=== PATIENT | male | born 1950 | race Caucasian/White ===

== ENCOUNTER → 2021-07-13 10:09 | Outpatient (CLI) | payer SELFPAY ==
--- NOTE | 2021-07-13 10:20 | XR_ITS ---
FINAL REPORT CLINICAL HISTORY: COUGH FINDINGS: Two views of the chest were obtained. There is evidence of median sternotomy. The heart size and pulmonary vascularity are within normal limits. The mediastinum is normal. No acute pulmonary abnormality is identified. There is no pneumothorax. There are degenerative changes of the thoracic spine. IMPRESSION: No active cardiopulmonary disease. Reviewed, Interpreted and Dictated by Bry Ramos III, MD Transcribed by Yumiko Hay Authenticated by Bry Ramos III, MD on 07/13/2021 11:15:28 AM [facility]
[2021-07-13 11:33] LABS: Basophils % 0.4 % (0.1-2.0); Eosinophils # 0.1 K/mm3 (0.0-0.4); Eosinophils % 1.4 % (0.1-12.0); Hematocrit 35.6 % (42.0-52.0); Hemoglobin 11.7 g/dL (14.1-18.0); Lymphocytes # 0.8 K/mm3 (0.7-4.5); Lymphocytes % 18.5 % (10-50); Mean Corpuscular Hemoglobin 27.9 pg (27.0-31.2); Mean Corpuscular Volume 84.7 fl (80-94); Mean Platelet Volume 9.2 fl (7.4-10.4); Monocytes # 0.3 K/mm3 (0.1-1.0); Monocytes % 5.4 % (1.7-9.3); Neutrophils # 3.4 K/mm3 (1.8-7.8); Neutrophils % 74.3 % (37.0-80.0); Platelet Count 310 K/mm3 (142-424); Red Cell Distribution Width 13.9 % (11.5-17.5); White Blood Count 4.6 K/mm3 (4.8-10.8)
[2021-07-13 11:45] LABS: Hemoglobin A1C 7.3 % (4.0-6.0)
[2021-07-13 12:09] LABS: Chloride 101 mmol/L (98-107); Sodium 135 mmol/L (136-145)
[2021-07-13 12:10] LABS: Potassium 4.6 mmoL/L (3.5-5.1)
[2021-07-13 12:12] LABS: Alanine Aminotransferase 26 U/L (12-78); Albumin Level 3.5 g/dl (3.5-5.0); Alkaline Phosphatase 53 U/L (38-126); Anion Gap 13.6 mEq/L (5-15); Aspartate Amino Transferase 40 U/L (17-59); Bilirubin,Total 0.3 mg/dl (0.2-1.3); Blood Urea Nitrogen 38 mg/dl (9-20); Carbon Dioxide 25 mmol/L (22.0-30.0); Estimated Glomerular Filt Rate 46 ml/min (>60); GFR (African American) 56 ML/MIN (>60)
[2021-07-13 12:13] LABS: Albumin/Globulin Ratio 1.1 (1.1-1.8); Calcium 8.6 mg/dl (8.4-10.2); Globulin 3.1 g/dL (1.3-3.2); Glucose 71 mg/dl (74-100); Total Protein,Serum 6.6 g/dl (6.3-8.2)
[2021-07-13 12:24] LABS: Coronavirus 19 IgG Antibody Negative (Negative); Coronavirus 19 IgM Antibody Positive (Negative)
== END ==
PROVIDERS: PCP Internal Medicine Adolescent Medicine; Visit Provider Internal Medicine Adolescent Medicine
DX: Z01.84 Encounter for antibody response examination (principal); J18.9 Pneumonia, unspecified organism; R05.9 Cough, unspecified; E11.9 Type 2 diabetes mellitus without complications
CPT/HCPCS: 36415; 71046; 80053; 83036; 85025; 86328

== ENCOUNTER → 2022-10-17 08:45 | Outpatient (CLI) | payer SELFPAY ==
--- NOTE | 2022-10-17 08:53 | XR_ITS ---
FINAL REPORT CLINICAL HISTORY: shoulder pain, fall last winter FINDINGS: LEFT SHOULDER 3 views of the left shoulder were obtained. There is no acute fracture or dislocation. There are mild degenerative changes of the acromioclavicular joint. A small loose body adjacent to the superior aspect of the acromioclavicular joint. There is no soft tissue abnormality. IMPRESSION: Degenerative change of the acromioclavicular joint with a small loose body adjacent to the superior aspect of the joint. No acute bony abnormality. Reviewed, Interpreted and Dictated by Bry Ramos III, MD Transcribed by Yumiko Hay Authenticated and [facility]
== END ==
PROVIDERS: PCP Internal Medicine Adolescent Medicine; Visit Provider Orthopaedic Surgery
DX: M25.512 Pain in left shoulder (principal)
CPT/HCPCS: 73030

== ENCOUNTER 2024-04-23 10:27 | Emergency (ER) | payer MEDICAID, SELFPAY ==
--- NOTE | 2024-04-23 10:55 | XR_ITS ---
PROCEDURE INFORMATION: Exam: XR Left Ankle Exam date and time: 04/23/2024 10:54 AM Age: 74 years old Clinical indication: Ankle and foot; Prior surgery; Surgery date: 6+ months; Surgery type: Pinning; Patient HX: Left foot and ankle pain TECHNIQUE: Imaging protocol: Radiologic exam of the left ankle. Views: 3 or more views. COMPARISON: CR XR ANKLE LT MIN 3V 04/23/2024 10:54 AM FINDINGS: Bones/joints: No acute fracture or malalignment. 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 Status post tibiotalar calcaneal arthrodesis with single cannulated screw. No evidence of hardware loosening or fracture. No cortical erosion or periosteal reaction. Soft tissues: No distinct soft tissue abnormality. IMPRESSION: No acute fracture or malalignment. 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 Status post tibiotalar calcaneal arthrodesis with single cannulated screw. No evidence of hardware loosening or fracture. No cortical erosion or periosteal reaction.
--- NOTE | 2024-04-23 10:55 | XR_ITS ---
PROCEDURE INFORMATION: Exam: XR Left Foot Exam date and time: 04/23/2024 10:52 AM Age: 74 years old Clinical indication: Ankle and foot; Left; Prior surgery; Surgery date: 6+ months; Surgery type: Pinning; Patient HX: Lt foot and ankle pain TECHNIQUE: Imaging protocol: Radiologic exam of the left foot. Views: 3 or more views. COMPARISON: No relevant prior studies available. FINDINGS: Tubes, catheters and devices: Status post prior tibiotalocalcaneal arthrodesis with single cannulated screw. No evidence of screw loosening or fracture. No cortical erosion or periosteal reaction. Bones/joints: No acute fracture or malalignment. No worrisome lytic or blastic lesion. Moderate joint space narrowing and osteophyte formation at the great toe MTP joint. Mild degenerative change scattered in the remainder of foot. Soft tissues: Mild soft tissue swelling predominantly of the hindfoot. No radiopaque foreign body or gas. IMPRESSION: 1. No acute findings. 2. Status post prior tibiotalocalcaneal arthrodesis with single cannulated screw. No evidence of screw loosening or fracture. No cortical erosion or periosteal reaction. 3. Moderate joint space narrowing and osteophyte formation at the great toe MTP joint.
[2024-04-23 11:10] VITALS: BP 121/61; PULSE 73; RESP 20; TEMP 36.9; O2SAT 100; BMI 26.6
--- NOTE | 2024-04-23 11:30 | ED_ITS ---
Discharge Plan Disposition Patient Disposition: Home, Self-Care Condition: Good Prescriptions Prescriptions: New diclofenac sodium 1 % gel 2 g topical BID PRN (Reason: pain) Qty: 100 0RF Rx Instructions: apply to ankle as directed Referrals Follow up/Referrals: Provider,Referral, MD [Primary Care Provider] - See instructions Activity Restrictions/Add. Instructions Additional Instructions/Restrictions: Wear boot as directed Call [facility] and make appointent Use topical Diclofenac gel as directed Return if needed Clinical Impressions Clinical Impression: Ankle pain Qualifiers: Chronicity: chronic Laterality: left Qualified Code(s): M25.572 - Pain in left ankle and joints of left foot Instructions Patient Instructions: Diclofenac Topical (arthritis pain), How to Use a Walking Boot Print Language Print Language: Yoruba Discharge ED Provider: Julia Puri [facility] General Stated complaint: left ankle pain Mode of Arrival: Ambulatory Source of Information: Patient Limitations: No Limitations Time Seen by Provider: 04/23/24 11:30 Description of Symptoms (Recalled from Triage Doc. by RN): PATIENT C/O PAIN TO LEFT ANKLE. HE STATES HE HAD SURGERY WITH HARDWARE PLACEMENT ON IT APPROX 10 YEARS AGO, AFTER WHICH THEY HAD TO REMOVE MOST OF HARDWARE D/T REJECTION. PATIENT DOES STILL HAVE A 4 SCREW. THERE IS A LATERAL BEND IN PATIENT'S ANKLE, WHICH HE STATES IS NORMALLY THERE BUT SEEMS TO BE GETTING WORSE HEENT Symptoms (Recalled from RN notes): No Resp Symptoms (Recalled from RN notes): No Skin Symptoms (Recalled from RN notes): No MS Symptoms (Recalled from RN notes): Yes Functional Status (Recalled from RN notes): WNL History of Present Illness Provider Complaint: Patient states that he has surgery on this left foot and ankle about 10 yrs ago and he rejected the hardware and they left one long screw in States he has not been wearing his brace because it bothers him and he noticed he his foot and ankle looks more turned now and having achy like pain more than he was, wanted to come in and get a boot to see if that will help until he gets into the foot doctor Related Data Previous Rx's ?Medication ?Instructions ?Recorded diclofenac sodium 1 % topical gel 2 g topical BID PRN pain #100 grams 04/23/24 Allergies Allergy/AdvReac Type Severity Reaction Status Date / Time No Known Allergies Allergy Verified 10/28/22 12:09 Worker's Comp Is this a Worker's Comp case?: No [facility] Disclaimer: The information contained in this section may have been updated after the patient was seen, as this information can be updated by other users. Social History (Updated 10/28/22 @ 12:31 by Travis Cai JR, MD) Smoking Status: Never smoker alcohol intake: never current occupational status: retired Travel in the last 8 weeks: Inside the [place] ROS Obtained: Yes All systems reviewed & no additional complaints except as documented and Yes Systems reviewed as appropriate & no additional complaints except as documented Constitutional Constitutional: Reports system reviewed and no additional complaints, except as documented and Reports as per HPI ENT Ears, Nose, Mouth, and Throat: Reports system reviewed and no additional complaints, except as documented and Reports as per HPI Cardiovascular Cardiovascular: Reports system reviewed and no additional complaints, except as documented and Reports as per HPI Respiratory Respiratory: Reports system reviewed and no additional complaints, except as documented and Reports as per HPI Gastrointestinal Gastrointestingal: Reports system reviewed and no additional complaints, except as documented and as per HPI Musculoskeletal Musculoskeletal: Reports system reviewed and no additional complaints, except as documented, Reports as per HPI and Reports other (pain and turning of foot and ankle) Integumentary/Breasts Skin/Breast: Reports system reviewed and no additional complaints, except as documented and Reports as per HPI Physical Exam General General appearance: alert and in no apparent distress ENT ENT exam: Present mucous membranes moist Respiratory Respiratory exam: Present normal lung sounds bilaterally; Absent respiratory distress or wheezes Cardiovascular Cardiovascular exam: Present regular rate, normal rhythm and normal heart sounds Expanded Lower Extremity Exam Left: Ankle exam: Present tenderness and other (lateral bend to ankle reports worse than it was, no bruising, denies new injury); Absent swelling or erythema Foot/toe exam: Present tenderness; Absent swelling, abrasion, ecchymosis or erythema Neurological Exam Neurological exam: Present alert, oriented X3 and normal gait Medical Decision Making Medical Records Screening: Per USPSTF and CDC recommendations, given the prevalence of disease in our region, it is our hospital?s policy to screen for HIV and viral Hepatitis for all patients aged 18 and over and those with ongoing risk factors. Christian Inquiry Pt receiving controlled substance: No Christian was queried for this patient: No Vital Signs: 04/23/24 11:10 Temperature 98.4 F Temperature Source Temporal Artery Scan Pulse Rate [Left Brachial] 73 Respiratory Rate 20 Blood Pressure [Left Arm] 121/61 Blood Pressure Mean [Left Arm] 81 Blood Pressure Source [Left Arm] Automatic Cuff Blood Pressure Position [Left Arm] Sitting 02 Sat by Pulse Oximetry 100 Oxygen Delivery Method Room Air Orders (Tests/Meds): ORDERS Category Date Time Status Ankle XR - Left minimum 3 Views [XR ankle LT min 3V] Exams 04/23/24 10:55 Taken Stat XR foot LT min 3V Stat Exams 04/23/24 10:55 Taken Radiology Data #1: Image(s): Ankle Image Reviewed: Yes I have reviewed radiologist's interpretation IMPRESSION: No acute fracture or malalignment. 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 Status post tibiotalar calcaneal arthrodesis with single cannulated screw. No evidence of hardware loosening or fracture. No cortical erosion or periosteal reaction. #2: Image(s): Foot/Toes Image Reviewed: Yes I have reviewed radiologist's interpretation IMPRESSION: 1. No acute findings. 2. Status post prior tibiotalocalcaneal arthrodesis with single cannulated screw. No evidence of screw loosening or fracture. No cortical erosion or periosteal reaction. 3. Moderate joint space narrowing and osteophyte formation at the great toe MTP joint.
[2024-04-23 11:55] VITALS: BP 121/61; PULSE 73; RESP 20; TEMP 36.9; O2SAT 100
== END 2024-04-23 12:00 | disposition home or self-care (01) ==
PROVIDERS: Emergency Provider Nurse Practitioner
DX: M25.572 Pain in left ankle and joints of left foot (principal)
CPT/HCPCS: 73610; 73630; 99212; G0381

== ENCOUNTER 2024-11-28 01:55 | Emergency (ER) | payer MEDICAID, SELFPAY ==
[2024-11-28] VITALS (17 sets, daily range): BP systolic 79–151; BP diastolic 54–84; PULSE 69–96; RESP 12–22; TEMP 36.5; O2SAT 96–100; BMI 23.5
--- NOTE | 2024-11-28 02:08 | ECG_ITS ---
APPROVED REPORT Exam: Resting ECG HR:90 bpm ECG Measurements Heart Rate 90 AXES AL 178 P 53 QRSd 129 QRS -32 QT 395 T 35 QTc 443 Conclusion SINUS RHYTHM POSSIBLE LEFT ATRIAL ENLARGEMENT [-0.1mV P-WAVE IN V1/V2] LEFT AXIS DEVIATION [QRS AXIS < -30] POSSIBLE RIGHT VENTRICULAR CONDUCTION DELAY [RSR (QR) IN V1/V2] ANTEROSEPTAL MYOCARDIAL INFARCTION , OF INDETERMINATE AGE [40+ ms Q WAVE IN V1-V4] No STEMI Electronically signed by : JI BRANTLEY, 11/30/2024 04:53:31
--- NOTE | 2024-11-28 02:11 | CT_ITS ---
PROCEDURE INFORMATION: Exam: CT Head Without Contrast Exam date and time: 11/28/2024 2:50 AM Age: 74 years old Clinical indication: Injury or trauma; Fall TECHNIQUE: Imaging protocol: Computed tomography of the head without contrast. Radiation optimization: All CT scans at this facility use at least one of these dose optimization techniques: automated exposure control; mA and/or kV adjustment per patient size (includes targeted exams where dose is matched to clinical indication); or iterative reconstruction. COMPARISON: No relevant prior studies available. FINDINGS: Brain: Encephalomalacia right cerebellum. There is diffuse prominence of the cerebral sulci, cisterns, and ventricles consistent with atrophy. No intra or extra-axial fluid collections are noted. No mass or mass effect is seen. Periventricular white matter hypoattenuation is seen consistent with small vessel disease. Cerebral ventricles: No ventriculomegaly. Paranasal sinuses: Visualized sinuses are unremarkable. No fluid levels. Mastoid air cells: Visualized mastoid air cells are well aerated. Bones: Prior left frontal craniotomy. Soft tissues: Unremarkable. IMPRESSION: No acute process identified.
--- NOTE | 2024-11-28 02:11 | CT_ITS ---
PROCEDURE INFORMATION: Exam: CT Cervical Spine Without Contrast Exam date and time: 11/28/2024 2:55 AM Age: 74 years old Clinical indication: Neck pain; Additional info: Fall TECHNIQUE: Imaging protocol: Computed tomography of the cervical spine without contrast. Radiation optimization: All CT scans at this facility use at least one of these dose optimization techniques: automated exposure control; mA and/or kV adjustment per patient size (includes targeted exams where dose is matched to clinical indication); or iterative reconstruction. COMPARISON: CT CERVICAL SPINE WO CON 11/28/2024 2:55 AM FINDINGS: Bones/joints: Diffuse cervical spondylosis is noted. Hypertrophic changes of the facet present bilaterally. Discs/Spinal canal/Neural foramina: Narrowing of multiple intervertebral disc spaces are seen. Moderate neural foraminal narrowing is also noted. Lungs: Lung apices are normal. Vasculature: No obvious traumatic injury is seen. Carotid atherosclerosis is present. Soft tissues: Unremarkable. IMPRESSION: 1. No evidence of acute traumatic injury. 2. Diffuse cervical spondylosis. 3. Carotid atherosclerosis is present.
--- NOTE | 2024-11-28 02:14 | CT_ITS ---
PROCEDURE INFORMATION: Exam: CTA Chest With Contrast Exam date and time: 11/28/2024 3:04 AM Age: 74 years old Clinical indication: Shortness of breath; Additional info: Generalized weakness, falls, SOB TECHNIQUE: Imaging protocol: Computed tomographic angiography of the chest with contrast. Exam focused on the arteries. 3D rendering (Not supervised by radiologist): MIP and/or 3D reconstructed images were created by the technologist. Radiation optimization: All CT scans at this facility use at least one of these dose optimization techniques: automated exposure control; mA and/or kV adjustment per patient size (includes targeted exams where dose is matched to clinical indication); or iterative reconstruction. Contrast material: ISOVUE; Contrast volume: 70 ml; Contrast route: INTRAVENOUS (IV); COMPARISON: CT ANGIO CHEST PE PROTOCOL 11/28/2024 3:04 AM FINDINGS: Pulmonary arteries: Normal. No pulmonary emboli. Aorta: Mild calcification of the thoracic aorta. Lungs: Mild centrilobular opacities in the left upper lobe. Diffuse bronchial wall thickening. Pleural spaces: Unremarkable. No pneumothorax. No pleural effusion. Heart: Multiple surgical clips in the anterior pericardium. No cardiomegaly. No pericardial effusion. Coronary arteries: . Moderate calcification of the coronary arteries. Lymph nodes: Enlarged bilateral hilar lymph nodes. Bones/joints: Median sternotomy with wire closure. No acute fracture. Soft tissues: Unremarkable. IMPRESSION: 1. Mild centrilobular opacities in the left upper lobe. Diffuse bronchial wall thickening. Suspicious for infectious bronchiolitis. 2. Enlarged bilateral hilar lymph nodes.
--- NOTE | 2024-11-28 02:14 | CT_ITS ---
PROCEDURE INFORMATION: Exam: CT Thoracic Spine Without Contrast Exam date and time: 11/28/2024 2:57 AM Age: 74 years old Clinical indication: Pain in thoracic spine; Additional info: Fall, generalized weakness TECHNIQUE: Imaging protocol: Computed tomography of the thoracic spine without contrast. Radiation optimization: All CT scans at this facility use at least one of these dose optimization techniques: automated exposure control; mA and/or kV adjustment per patient size (includes targeted exams where dose is matched to clinical indication); or iterative reconstruction. COMPARISON: CT THORACIC SPINE WO CON 11/28/2024 2:57 AM FINDINGS: Bones/joints: Bridging osteophytes in the mid and lower thoracic spine. No acute fracture. No subluxation. No central canal stenosis. Mild insufficiency fracture of the superior endplate of T12. Soft tissues: Unremarkable. IMPRESSION: Mild superior endplate insufficiency fracture at T12. No central canal narrowing.
--- NOTE | 2024-11-28 02:14 | CT_ITS ---
PROCEDURE INFORMATION: Exam: CT Lumbar Spine Without Contrast Exam date and time: 11/28/2024 2:59 AM Age: 74 years old Clinical indication: Low back pain; Additional info: Fall, generalized weakness TECHNIQUE: Imaging protocol: Computed tomography of the lumbar spine without contrast. Radiation optimization: All CT scans at this facility use at least one of these dose optimization techniques: automated exposure control; mA and/or kV adjustment per patient size (includes targeted exams where dose is matched to clinical indication); or iterative reconstruction. COMPARISON: CT LUMBAR SPINE WO CON 11/28/2024 2:59 AM FINDINGS: Bones/joints: Severe disc space narrowing and marginal osteophytosis at L5-S1. Moderate bilateral foraminal narrowing at L5-S1. Large marginal osteophytes at L1, L2, L4 and L5. Soft tissues: Unremarkable. IMPRESSION: No acute fracture or subluxation. Degenerative disc disease with moderate bilateral foraminal stenosis at L5-S1.
--- NOTE | 2024-11-28 02:14 | CT_ITS ---
PROCEDURE INFORMATION: Exam: CT Abdomen And Pelvis With Contrast Exam date and time: 11/28/2024 3:04 AM Age: 74 years old Clinical indication: Abdominal pain; Additional info: Falls, generalized weakness, generalized abd pain TECHNIQUE: Imaging protocol: Computed tomography of the abdomen and pelvis with contrast. 3D rendering (Not supervised by radiologist): MIP and/or 3D reconstructed images were created by the technologist. Radiation optimization: All CT scans at this facility use at least one of these dose optimization techniques: automated exposure control; mA and/or kV adjustment per patient size (includes targeted exams where dose is matched to clinical indication); or iterative reconstruction. Contrast material: ISOVUE; Contrast volume: 70 ml; Contrast route: IV; COMPARISON: CT LUMBAR SPINE WO CON 11/28/2024 2:59 AM FINDINGS: Liver: Normal. No mass. Gallbladder and biliary ducts: Normal. No calcified stones. No ductal dilation. Pancreas: Normal. No ductal dilation. Spleen: Normal. No splenomegaly. Adrenal glands: Normal. No mass. Kidneys and ureters: Simple appearing bilateral renal cysts measuring up to 6 cm. No hydronephrosis or hydroureter. Stomach and bowel: Unremarkable. No obstruction. No mucosal thickening. Appendix: No evidence of appendicitis. Intraperitoneal space: Unremarkable. No free air. No significant fluid collection. Vasculature: Extensive calcification of the aorta and iliac arteries. Lymph nodes: Unremarkable. No enlarged lymph nodes. Urinary bladder: Unremarkable as visualized. Reproductive: Unremarkable as visualized. Bones/joints: Degenerative changes in the spine. Soft tissues: Unremarkable. IMPRESSION: 1. No acute findings. 2. Atherosclerotic vascular disease. COMMENTS: Consistent with the [employer]'s Incidental Findings Committee white paper (J Am Juan Luis Radiol 2018): Any incidental renal lesion less than 1 cm or classified as too small to characterize, or any incidental cystic renal lesion characterized as simple-appearing, is likely benign. No follow-up imaging is recommended for these lesions per consensus recommendations based on imaging criteria.
[2024-11-28] MEDS: METHOCARBAMOL 500MG TABLET 500 MG PO (02:22)
[2024-11-28] MEDS: LACTATED RINGERS 1000ML 1,000 ML 999 ML IV (02:22)
[2024-11-28] MEDS: ACETAMINOPHEN 500MG TAB 1000 MG PO (02:22)
[2024-11-28 02:24] LABS: Basophils % 0.3 % (0.1-2.0); Eosinophils # 0.1 Kmm3 (0.0-0.4); Eosinophils % 2.2 % (0.1-12.0); Hematocrit 36.3 % (42.0-52.0); Hemoglobin 11.7 g/dL (14.1-18.0); Immature Granulocytes # 0.01 10^3uL; Immature Granulocytes % 0.2 %; Lymphocytes % 17.3 % (10-50); Mean Corpuscular HGB Conc 32.2 g/dL (31.8-35.4); Mean Corpuscular Hemoglobin 26.1 pg (27.0-31.2); Mean Platelet Volume 10.2 fl (7.4-10.4); Monocytes # 0.5 K/mm3 (0.1-1.0); Monocytes % 8.2 % (1.7-9.3); Neutrophils # 4.2 K/mm3 (1.8-7.8); Neutrophils % 71.8 % (37.0-80.0); Nucleated Red Blood Cells # 0 10^3/uL; Nucleated Red Blood Cells % 0 %; Platelet Count 220 K/mm3 (142-424); Red Blood Count 4.48 M/mm3 (4.60-6.20); Red Cell Distribution Width 14.9 % (11.5-17.5); Red Cell Distribution Width-SD 43.4 fL; White Blood Count 5.9 K/mm3 (4.8-10.8)
--- NOTE | 2024-11-28 02:28 | PC.NURSE ---
Mei Slater MD aware
[2024-11-28 02:30] LABS: Albumin Level 3.9 g/dl (3.5-5.0); Chloride 103 mmol/L (98-107); Potassium 3.9 mmoL/L (3.5-5.1); Sodium 134 mmol/L (136-145)
[2024-11-28 02:33] LABS: Alanine Aminotransferase 20 U/L (12-78); Albumin/Globulin Ratio 1.2 (1.1-1.8); Alkaline Phosphatase 76 U/L (38-126); Anion Gap 9.9 mEq/L (5-15); Aspartate Amino Transferase 31 U/L (17-59); Bilirubin,Total 0.4 mg/dl (0.2-1.3); Blood Urea Nitrogen 28 mg/dl (9-20); Carbon Dioxide 25 mmol/L (22.0-30.0); Creatine Kinase 149 U/L (55-170); Creatinine Clearance Estimated 60 mL/min (50-200); Estimated Glomerular Filt Rate 82 ml/min (>60); GFR (African American) 99 ML/MIN (>60); Globulin 3.3 g/dL (1.3-3.2); Total Protein,Serum 7.2 g/dl (6.3-8.2)
[2024-11-28 02:34] LABS: Calcium 9.3 mg/dl (8.4-10.2); Glucose 387 mg/dl (74-100)
--- NOTE | 2024-11-28 02:37 | ED_ITS ---
Discharge Plan Disposition Patient Disposition: Admitted Clinical Impressions Clinical Impression: Acute transverse myelitis, Bilateral leg weakness Discharge ED Provider: Robert Mosquera General Adult HPI General Chief complaint: Weakness Stated complaint: limited mobility, body pain Time Seen by Provider: 11/28/24 01:55 Mode of Arrival: Wheelchair Source of Information: Patient and Relative Description of Symptoms (Recalled from ER Triage Doc. by RN): Generalized weakness and pain Pt present to the ED with c/o full bodyaches and weakness X 1 wk. Pt's relative rpeorts that the pt was walking X 1 week ago but now the pt is unable to wear weight. History of Present Illness HPI narrative: 74-year-old male with history of coronary artery disease, transverse myelitis presents for generalized weakness and pain. He normally walks with a walker but over the last week and especially over the last couple days he has not been able to bear weight at all. His family found him on the ground multiple times after he fell trying to get up. He reports no recent infections. He has residual incontinence and constipation from his prior transverse myelitis. He reports that happened several years ago and is not able to provide a lot of further details. He reportedly stopped taking his medications a couple months ago. His primary concern is pain. He reports pain all over. Pain is sharp, burning. No reported confusion or headache. Related Data Previous Rx's ?Medication ?Instructions ?Recorded diclofenac sodium 1 % topical gel 2 g topical BID PRN pain #100 grams 04/23/24 Allergies Allergy/AdvReac Type Severity Reaction Status Date / Time lisinopril AdvReac Unknown Verified 11/28/24 03:36 allergy reaction zolpidem (From Ambien) AdvReac Confusion Verified 11/28/24 03:36 [facility] Disclaimer: The information contained in this section may have been updated after the patient was seen, as this information can be updated by other users. Medical History (Updated 11/28/24 @ 06:30 by Robert Mosquera MD) Insomnia Myocardial infarction Adult hypothyroidism CAD (coronary artery disease) Hypertension Diabetes Surgical History (Updated 11/28/24 @ 03:39 by Stephanie Ahumada RN) History of back surgery H/O coronary artery bypass surgery Social History (Updated 10/28/22 @ 12:31 by Travis Cai JR, MD) Smoking Status: Never smoker alcohol intake: never current occupational status: retired Travel in the last 8 weeks?: Inside the [place] Have you lived/traveled outside [place] in past 30 days?: No Contact w/someone who lives/traveled outside US past 30 days?: No Exposure to someone with infectious disease in past 14 days?: No Do you have a fever (greater than 100.4 F or 38 C)?: No Have you tested positive for COVID-19?: No Exposed to someone with COVID-19 in past 14 days?: No Do you have a sore throat?: No Do you have a cough?: No Do you have any weakness?: No Do you have any diarrhea?: No Are you experiencing any unusual bleeding?: No Do you have any muscle aches/pain?: Yes Do you have any abdominal pain?: No Are you experiencing loss of taste or smell?: No Other Medical History Have you received the Pneumonia Vaccine: No ROS Obtained: Yes All systems reviewed & no additional complaints except as documented Physical Exam General General appearance: alert and in no apparent distress Head Head exam: atraumatic and normocephalic Eye Eye exam: Present normal appearance, PERRL and EOMI ENT ENT exam: Present normal oropharynx and normal external ear exam Neck Neck exam: Present normal inspection and full ROM Chest Chest inspection: Present normal inspection and symmetric chest wall rise; Absent tenderness Respiratory Respiratory exam: Present normal lung sounds bilaterally; Absent respiratory distress Cardiovascular Cardiovascular exam: Present regular rate and normal rhythm Abdominal Exam Abdominal exam: Present soft; Absent distention, tenderness or guarding Extremities Exam Extremities exam: Present normal inspection and edema (Minimal bilateral lower extremity); Absent joint swelling Back Exam Back exam: Present normal inspection; Absent tenderness Neurological Exam Neurological exam: Present alert, oriented X3 and other (Flaccid paresis of the bilateral lower extremities patient unable to raise the legs against gravity, weakness with dorsiflexion greater than plantarflexion, burning paresthesias on palpation. Bilateral upper extremities are weak but stronger than legs.) Psychiatric Psychiatric exam: Present normal affect and normal mood Skin Skin exam: Present warm, dry and normal color Lymphatic Lymphatic Findings: no adenopathy Medical Decision Making Medical Records Medical records reviewed: Yes I reviewed the patient's medical records. Screening: Per USPSTF and CDC recommendations, given the prevalence of disease in our region, it is our hospital?s policy to screen for HIV and viral Hepatitis for all patients aged 18 and over and those with ongoing risk factors. Christian Inquiry Pt receiving controlled substance: No Christian was queried for this patient: No Vital Signs: 11/28/24 02:02 11/28/24 02:03 11/28/24 02:12 Temperature 97.7 F Temperature Source Oral Pulse Rate 96 H 93 H Pulse Rate [Right] 69 Respiratory Rate 14 Blood Pressure 151/84 H 149/80 H Blood Pressure [Right Arm] 151/84 H Blood Pressure Mean Blood Pressure Mean [Right Arm] 106 Blood Pressure Source [Right Arm] Automatic Cuff Blood Pressure Position [Right Arm] Sitting 02 Sat by Pulse Oximetry 99 99 98 Oxygen Delivery Method Room Air Room Air Room Air 11/28/24 02:15 11/28/24 02:19 11/28/24 02:30 Temperature Temperature Source Pulse Rate 89 87 90 Pulse Rate [Right] Respiratory Rate 16 20 19 Blood Pressure 82/59 L 79/54 L 95/54 L Blood Pressure [Right Arm] Blood Pressure Mean 62 Blood Pressure Mean [Right Arm] Blood Pressure Source [Right Arm] Blood Pressure Position [Right Arm] 02 Sat by Pulse Oximetry 99 100 98 Oxygen Delivery Method Room Air Room Air 11/28/24 03:12 11/28/24 03:30 11/28/24 04:00 Temperature Temperature Source Pulse Rate 71 84 91 H Pulse Rate [Right] Respiratory Rate 20 20 16 Blood Pressure 135/66 123/61 131/66 Blood Pressure [Right Arm] Blood Pressure Mean 89 81 87 Blood Pressure Mean [Right Arm] Blood Pressure Source [Right Arm] Blood Pressure Position [Right Arm] 02 Sat by Pulse Oximetry 97 97 99 Oxygen Delivery Method 11/28/24 04:30 11/28/24 05:00 11/28/24 05:30 Temperature Temperature Source Pulse Rate 81 84 83 Pulse Rate [Right] Respiratory Rate 21 16 12 Blood Pressure 110/65 125/66 132/70 Blood Pressure [Right Arm] Blood Pressure Mean 79 86 Blood Pressure Mean [Right Arm] Blood Pressure Source [Right Arm] Blood Pressure Position [Right Arm] 02 Sat by Pulse Oximetry 99 99 100 Oxygen Delivery Method Room Air 11/28/24 06:01 Temperature Temperature Source Pulse Rate 90 Pulse Rate [Right] Respiratory Rate 14 Blood Pressure 151/83 H Blood Pressure [Right Arm] Blood Pressure Mean 99 Blood Pressure Mean [Right Arm] Blood Pressure Source [Right Arm] Blood Pressure Position [Right Arm] 02 Sat by Pulse Oximetry 99 Oxygen Delivery Method Lab Data Lab results reviewed: Yes I reviewed the patient's lab results. Lab Results 11/28/24 02:15: WBC 5.9, RBC 4.48 L, Hgb 11.7 L, Hct 36.3 L, MCV 81.0, MCH 26.1 L, MCHC 32.2, RDW 14.9, Plt Count 220, MPV 10.2, Neut % (Auto) 71.8, Lymph % (Auto) 17.3, [place] % (Auto) 8.2, Eos % (Auto) 2.2, Baso % (Auto) 0.3, Neut # (Auto) 4.2, Lymph # (Auto) 1.0, [place] # (Auto) 0.5, Eos # (Auto) 0.1, Baso # (Auto) 0.0, ESR 36 H, D-Dimer 0.75 H, Sodium 134 L, Potassium 3.9, Chloride 103, Carbon Dioxide 25, Anion Gap 9.9, BUN 28 H, Creatinine 0.90, Estimated Creat Clear 60, Estimated GFR 82, Est GFR ( Amer) 99, Glucose 387 H, Calcium 9.3, Phosphorus 2.9, Magnesium 1.6, Total Bilirubin 0.4, AST 31, ALT 20, Alkaline Phosphatase 76, Total Creatine Kinase 149, Troponin I 0.03, C-Reactive Protein 10.3 H, NT-Pro-B Natriuret Pep 1380 H, Total Protein 7.2, Albumin 3.9, G lobulin 3.3 H, Albumin/Globulin Ratio 1.2, TSH 13.30 H, Thyroxine (T4) 8.3, HCV Ab LILIAM w/Rflx PCR Qn Negative, HIV Ag/Ab Combo Qual Negative 11/28/24 04:40: Urine Color Yellow, Urine Appearance Clear, Urine pH 6.0, Ur Specific [place] 1.010, Urine Protein Negative, Urine Glucose (UA) 3+, Urine Ketones Negative, Urine Blood Negative, Urine Nitrate Negative, Urine Bilirubin Negative, Urine Urobilinogen 0.2, Ur Leukocyte Esterase Negative, Urine RBC Occasional, Urine WBC Occasional, Ur Squamous Epith Cells 3-5, Urine Bacteria Trace 11/28/24 05:32: Troponin I 0.03 11/28/24 02:15 11/28/24 02:15 Orders (Tests/Meds): ED MEDICATIONS Generic Name Dose Route Start Last Admin Trade Name [place] PRN Reason Stop Dose Admin Acetaminophen 650 mg 11/28/24 06:25 Acetaminophen 325mg Tab PO 12/28/24 06:24 Q4HP PRN Fever or Mild Pain (1-3) Hydrocodone Bitart/Acetaminophen 1 tab 11/28/24 06:25 Hydrocodone/Apap 5/325 Mg Tablet PO 12/28/24 06:24 Q4HP PRN Mild to Moderate Pain (1-6) Ketorolac Tromethamine 15 mg 11/28/24 06:31 Ketorolac 30mg/Ml Vial IV 11/28/24 06:32 ONCE ONE Ondansetron HCl 4 mg 11/28/24 06:25 Ondansetron 4mg/2ml Vial IV 12/28/24 06:24 Q8HP PRN Nausea Discontinued Medications Generic Name Dose Route Start Last Admin Trade Name Freq PRN Reason Stop Dose Admin Acetaminophen 1,000 mg 11/28/24 02:11 11/28/24 02:22 Acetaminophen 500mg Tab PO 11/28/24 02:12 1,000 mg ONCE ONE Administration Lactated Ringer's 1,000 mls @ 999 mls/hr 11/28/24 02:30 11/28/24 02:22 Lactated Ringer's 1000 Ml Bag IV 11/28/24 03:30 999 mls/hr .Q1H1M GENOVEVA Administration Methylprednisolone Sodium 250 mls @ 500 mls/hr 11/28/24 05:45 11/28/24 05:32 Succinate 1,000 mg/ Sodium IV 11/28/24 06:14 500 mls/hr Chloride ONCE ONE Administration Iopamidol 70 ml 11/28/24 03:10 11/28/24 03:10 Iopamidol-370 (76%);100ml Bottle IV 11/28/24 03:11 70 ml ONCE ONE Administration Methocarbamol 500 mg 11/28/24 02:11 11/28/24 02:22 Methocarbamol 500mg Tablet PO 11/28/24 02:12 500 mg ONCE ONE Administration Methylprednisolone Sodium Succinate 1,000 mg 11/28/24 05:15 Methylprednisolone Sod Succ 125mg Vial IV 11/28/24 05:16 ONCE ONE Morphine Sulfate 4 mg 11/28/24 03:11 11/28/24 03:13 Morphine 4mg/Ml Syringe IV 11/28/24 03:12 4 mg ONCE ONE Administration Oxycodone HCl 5 mg 11/28/24 04:51 11/28/24 04:54 Oxycodone 5mg Immediate Release Tablet PO 11/28/24 04:52 5 mg ONCE ONE Administration Sodium Chloride 50 ml 11/28/24 03:10 11/28/24 03:11 0.9 % Sodium Chloride 50 Ml Vial IV 11/28/24 03:11 50 ml ONCE ONE Administration Sodium Chloride 10 ml 11/28/24 03:10 11/28/24 03:11 Sodium Chloride 0.9% 10ml Syr (Rad Only) IV 11/28/24 03:11 10 ml ONCE ONE Administration ORDERS Category Date Time Status CT abdomen pelvis w con Stat Cat Scan 11/28/24 02:[address] angio chest PE protocol Stat Cat Scan 11/28/24 02:[address] cervical spine wo con Stat Cat Scan 11/28/24 02:[address] head/brain wo con Stat Cat Scan 11/28/24 02:[address] lumbar spine wo con Stat Cat Scan 11/28/24 02:[address] thoracic spine wo con Stat Cat Scan 11/28/24 02:14 Completed BNP [NT Pro Brain Natriuretic Pep.] Stat Lab 11/28/24 02:15 Completed CBC w/Auto Diff [Complete Blood Count Auto Diff] Stat Lab 11/28/24 02:15 Completed CK [Creatine Kinase] Stat Lab 11/28/24 02:15 Completed CMP [Comprehensive Metabolic Panel] Stat Lab 11/28/24 02:15 Completed CRP [C-Reactive Protein] Stat Lab 11/28/24 02:15 Completed Complete Blood Count Auto Diff AMLAB Lab 11/29/24 06:00 Ordered Comprehensive Metabolic Panel Timed Lab 11/28/24 06:30 Received Cortisol Stat Lab 11/28/24 02:15 Received D-Dimer Stat Lab 11/28/24 02:15 Completed ESR [Erythrocyte Sedimentation Rate] Stat Lab 11/28/24 02:15 Completed HIV Combo Stat Lab 11/28/24 02:15 Completed Hepatitis C Ab Qual. W/ RFX Stat Lab 11/28/24 02:15 Completed Magnesium AMLAB Lab 11/29/24 06:00 Ordered Magnesium Stat Lab 11/28/24 02:15 Completed Phosphorous AMLAB Lab 11/29/24 06:00 Ordered Phosphorous Stat Lab 11/28/24 02:15 Completed T4 (Thyroxine) Stat Lab 11/28/24 02:15 Completed TSH [Thyroid Stimulating Hormone] Stat Lab 11/28/24 02:15 Completed Troponin I Q3H Lab 11/28/24 02:15 Completed Troponin I Q3H Lab 11/28/24 05:32 Completed UA [Urinalysis and Microscopic] Stat Lab 11/28/24 04:40 Completed Urinalysis and Microscopic Stat Lab 11/28/24 04:52 Ordered Blood Culture Stat Micro 11/28/24 02:25 Received ECG Data Tracing #1: I reviewed this ECG and interpreted as documented below: Sinus rhythm, ventricular rate of 90, mildly prolonged QRS, no significant ST changes ECG initial impression date: 11/28/24 ECG initial impression time: 02:08 HEART Score History (anamnesis): Slightly suspicious ECG: Non-specific disturbance Age: >65 years Risk factors: Atherosclerosis history Troponin: </= normal limit HEART Score: 5 Medical Decision Narrative: 74-year-old male with history of coronary artery disease, hypertension, diabetes, transverse myelitis several years ago presents for progressive generalized weakness and paresthesias over the last several days, worse in the lower extremities. History was obtained via interactive discussion with patient, family chart review. On arrival, patient is [afebrile, hemodynamically stable, satting appropriately, alert, oriented x4, GCS 15], moving all extremities spontaneously. Full physical exam performed and significant for bilateral lower extremity paresis, unable to raise legs against gravity, burning paresthesias. Bilateral upper extremities are weak but not to the same degree. Patient breathing comfortably Differential includes but is not limited to transverse myelitis recurrence, Guillain-Hernandez?, compressive myelopathy, electrolyte derangement, neuromuscular disorder myxedema coma, heart failure. Patient was given Tylenol and Robaxin and morphine for pain. Workup initiated including CBC CMP TSH T4 BNP troponin cortisol blood cultures. On re-evaluation, patient [remains afebrile, HD stable.] Laboratory workup independently interpreted by me and significant for no significant electrolyte derangement, normal renal function, TSH mildly elevated but T4 is normal. Hyperglycemia noted with ESR and CRP are mildly elevated.. Imaging independently interpreted by me and significant for no evidence of intracranial hemorrhage, no PE, no significant intra-abdominal pathology, no canal narrowing on CT of the spines. Does show a small superior endplate fracture of T12 with no canal narrowing. See radiology read for full review of final results. Given patient history, exam and workup, patient's presentation most likely represents recurrent transverse myelitis, AIDP, or compressive myelopathy. I spent several hours contacting multiple hospitals including [facility], [facility], [facility], [facility], [facility]. All hospitals seemed interested in excepting him but are full. He is currently on a wait list for [facility], [facility] and [facility]. Patient's family would prefer to go [facility] if at all possible. After discussion with the neurologist at [facility], patient was initiated on 1 g of IV Solu-Medrol. Interactive discussion was had with the hospitalist on-call for admission pending transfer. Procedures Risk/Benefits of Procedure(s) Were Explained: Yes Critical Care Critical Care Time Critical Care Time: Yes Attestation: On 11/28/24, the high probability of a clinically significant, sudden or life threatening deterioration of the following system(s) neuro required my full and direct attention, intervention and personal management. The time I documented below is in addition to time spent performing reported procedures but includes the following listed in this critical care notation. Total Time Total Critical Care Time: 40
[2024-11-28 02:39] LABS: C-Reactive Protein 10.3 mg/L (0-4)
[2024-11-28 02:40] LABS: D-Dimer 0.75 ug/mL (0.0-0.5)
[2024-11-28 02:41] LABS: Magnesium 1.6 mg/dl (1.6-2.3); Phosphorous 2.9 mg/dl (2.5-4.5)
[2024-11-28 02:50] LABS: T4 (Thyroxine) 8.3 ug/dl (5.53-11.0)
[2024-11-28 02:51] LABS: NT Pro Brain Natriuretic Pep. 1380 pg/mL (0-450)
[2024-11-28 02:53] LABS: Troponin I 0.03 ng/ml (0.00-0.034)
[2024-11-28] MEDS: IOPAMIDOL-370 (76%);100ML BOTTLE 70 ML IV (03:10)
[2024-11-28] MEDS: 0.9 % SODIUM CHLORIDE 50 ML VIAL IV (03:11)
[2024-11-28] MEDS: SODIUM CHLORIDE 0.9% 10ML SYR (RAD ONLY) 10 ML IV (03:11)
[2024-11-28] MEDS: MORPHINE 4MG/ML SYRINGE 4 MG IV (03:13)
[2024-11-28 03:23] LABS: HIV Combo NEGATIVE (Negative)
--- NOTE | 2024-11-28 03:27 | PC.NURSE ---
called [facility] about transferring pt to them. transferred the call over to Dr. Mosquera
[2024-11-28 03:30] LABS: Erythrocyte Sedimentation Rate 36 mm/hr (0-20); Hepatitis C Ab Qual. W/ RFX NEGATIVE (Negative)
--- NOTE | 2024-11-28 03:46 | PC.NURSE ---
called [facility] to see about getting transferred. stated they would call back
--- NOTE | 2024-11-28 03:47 | PC.NURSE ---
called [facility] about getting patient transferred stated they would call back
[2024-11-28 04:45] LABS: Microscopic, Urine URINE MICROSCOPIC (MICROSCOPIC)
[2024-11-28 04:46] LABS: Appearance,Urine CLEAR (Clear); Bilirubin,Urine Negative (Negative); Blood, Urine Negative (Negative); Color,Urine YELLOW (Yellow); Glucose,Urine (UA) 3+ (Negative); Ketones,Urine Negative (Negative); Leukocyte Esterase,Urine Negative (Negative); Nitrate,Urine Negative (Negative); Protein,Urine Negative (Negative); Urobilinogen,Urine 0.2 EU/dl (0.2)
[2024-11-28] MEDS: OXYCODONE 5MG IMMEDIATE RELEASE TABLET 5 MG PO (04:54)
--- NOTE | 2024-11-28 04:57 | PC.NURSE ---
[facility] called for possible transfer.
[2024-11-28 05:00] LABS: Bacteria,Urine Trace /lpf; RBC,Urine Occasional #/hpf (0-3); WBC,Urine Occasional #/hpf (0-3)
--- NOTE | 2024-11-28 05:15 | PC.NURSE ---
[facility] called for possible transfer. Pt is on waitlist.
[2024-11-28] MEDS: METHYLPREDN SOD SUCC 1,000 MG in 0.9 % SODIUM CHLORIDE 250 ML 500 MG IV (05:32)
[2024-11-28 06:11] LABS: Troponin I 0.03 ng/ml (0.00-0.034)
--- NOTE | 2024-11-28 06:33 | EXP.HP ---
History of Present Illness *Admission Date: 11/28/24 *Reason for visit:: leg weakness *History of present illness: 74-year-old male presents for generalized weakness and pain of lower extremities progressively worsening the past week. He normally walks with a walker but over the last week and especially over the last couple days he has not been able to bear weight at all. Hs family found him on the ground multiple times after he fell trying to get up and has been having to move him with a wheelchair. He reports that happened several years ago and is not able to provide a lot of further details. He reportedly stopped taking his medications a couple months ago. no recent infections. He has residual incontinence and constipation from his prior transverse myelitis. His primary concern is pain. Breathing okay no shortness of breath. history of coronary artery disease, transverse myelitis patient was initiated on 1 g of IV Solu-Medrol several hours contacting multiple hospitals including [facility], [facility], [place], [facility]. All hospitals seemed interested in excepting him but are full. He is currently on a wait list for [facility], [facility] and [place]. history independently obtained. independently interpretted diagnostics. reviewed prior records. discussed case with physician. [facility] Disclaimer: The information contained in this section may have been updated after the patient was seen, as this information can be updated by other users. Medical History (Updated 11/28/24 @ 06:47 by Yaya Mehta MD) Insomnia Myocardial infarction Adult hypothyroidism CAD (coronary artery disease) Hypertension Diabetes Surgical History (Updated 11/28/24 @ 03:39 by Stephanie Ahumada RN) History of back surgery H/O coronary artery bypass surgery Social History (Updated 10/28/22 @ 12:31 by Travis Cai JR, MD) Smoking Status: Never smoker alcohol intake: never current occupational status: retired Travel in the last 8 weeks?: Inside the [place] Have you lived/traveled outside [place] in past 30 days?: No Contact w/someone who lives/traveled outside US past 30 days?: No Exposure to someone with infectious disease in past 14 days?: No Do you have a fever (greater than 100.4 F or 38 C)?: No Have you tested positive for COVID-19?: No Exposed to someone with COVID-19 in past 14 days?: No Do you have a sore throat?: No Do you have a cough?: No Do you have any weakness?: No Do you have any diarrhea?: No Are you experiencing any unusual bleeding?: No Do you have any muscle aches/pain?: Yes Do you have any abdominal pain?: No Are you experiencing loss of taste or smell?: No Other Medical History Have you received the Pneumonia Vaccine: No Review of Systems Review of Systems Review of systems:: pertinent systems reviewed and negative unless documented below Constitutional Constitutional: Reports system reviewed and no additional complaints, except as documented and Reports weakness Eyes Eyes: Reports system reviewed and no additional complaints, except as documented *Cardiovascular Cardiovascular: Reports system reviewed and no additional complaints, except as documented *Respiratory Respiratory: Reports system reviewed and no additional complaints, except as documented *Gastrointestinal Gastrointestinal: Reports system reviewed and no additional complaints, except as documented *Musculoskeletal Musculoskeletal: Reports abnormal gait, Reports muscle weakness, Reports numbness and Reports radiating pain into limb *Neurologic Neurologic: Reports abnormal gait, Reports numbness and Reports weakness Meds Home Medications and Allergies Home Medications ?Medication ?Instructions ?Recorded ?Confirmed ?Type diclofenac sodium 1 % topical gel 2 g topical BID PRN pain #100 grams 04/23/24 Rx New Prescriptions to Start Prescriptions: Allergies Allergy/AdvReac Type Severity Reaction Status Date / Time lisinopril AdvReac Unknown Verified 11/28/24 03:36 allergy reaction zolpidem (From Ambien) AdvReac Confusion Verified 11/28/24 03:36 Exam Data for Last 24 hours Vital signs and Labs for Last 24 Hours: Temp Pulse Resp BP Pulse Ox O2 Del Method 97.7 F 90 14 151/83 H 99 Room Air 11/28/24 02:12 11/28/24 06:01 11/28/24 06:01 11/28/24 06:01 11/28/24 06:01 11/28/24 04:30 Laboratory Results - last 24 hr 11/28/24 02:15: WBC 5.9, RBC 4.48 L, Hgb 11.7 L, Hct 36.3 L, MCV 81.0, MCH 26.1 L, MCHC 32.2, RDW 14.9, Plt Count 220, MPV 10.2, Neut % (Auto) 71.8, Lymph % (Auto) 17.3, [place] % (Auto) 8.2, Eos % (Auto) 2.2, Baso % (Auto) 0.3, Neut # (Auto) 4.2, Lymph # (Auto) 1.0, [place] # (Auto) 0.5, Eos # (Auto) 0.1, Baso # (Auto) 0.0, ESR 36 H, D-Dimer 0.75 H, Sodium 134 L, Potassium 3.9, Chloride 103, Carbon Dioxide 25, Anion Gap 9.9, BUN 28 H, Creatinine 0.90, Estimated Creat Clear 60, Estimated GFR 82, Est GFR ( Amer) 99, Glucose 387 H, Calcium 9.3, Phosphorus 2.9, Magnesium 1.6, Total Bilirubin 0.4, AST 31, ALT 20, Alkaline Phosphatase 76, Total Creatine Kinase 149, Troponin I 0.03, C-Reactive Protein 10.3 H, NT-Pro-B Natriuret Pep 1380 H, Total Protein 7.2, Albumin 3.9, Globulin 3.3 H, Albumin/Globulin Ratio 1.2, TSH 13.30 H, Thyroxine (T4) 8.3, HCV Ab LILIAM w/Rflx PCR Qn Negative, HIV Ag/Ab Combo Qual Negative 11/28/24 04:40: Urine Color Yellow, Urine Appearance Clear, Urine pH 6.0, Ur Specific [place] 1.010, Urine Protein Negative, Urine Glucose (UA) 3+, Urine Ketones Negative, Urine Blood Negative, Urine Nitrate Negative, Urine Bilirubin Negative, Urine Urobilinogen 0.2, Ur Leukocyte Esterase Negative, Urine RBC Occasional, Urine WBC Occasional, Ur Squamous Epith Cells 3-5, Urine Bacteria Trace I & O for Last 24 hours: Intake & Output 11/25/24 11/26/24 11/27/24 11/28/24 23:59 23:59 23:59 23:59 Weight 68.039 kg Constitutional Constitutional: no acute distress *Routine HEENT Exam Head: Present normocephalic Eye: Present EOMI and PERRL ENT: Present mucous membranes moist *Routine Neck Exam Neck: Present supple; Absent lymphadenopathy *Routine Respiratory Exam Respiratory: Present CTA bilaterally *Routine Cardiovascular Exam Cardiovascular: Present RRR *Routine Abdominal Exam Abdominal: Present soft and normoactive bowel sounds; Absent tenderness *Routine Rectal Exam Rectal:: deferred *Routine Genitalia Exam Genitalia:: deferred *Routine Extremities Exam Extremities: Absent cyanosis, clubbing or edema *Routine Skin Exam Skin: Present warm; Absent rash *Routine Neurological Exam Neurological: Present alert, oriented X3 and motor deficit; Absent normal reflexes, altered mental status or moving all extremities Comments: decreased motor from b/l thigh down. worsened more distal. reduced plantar and dorsi flexion Assessment and Plan *Assessment and plan (1) Bilateral leg weakness: Status: Acute Category: Medical Code(s): R29.898 - Other symptoms and signs involving the musculoskeletal system (2) Acute transverse myelitis: Status: Acute Category: Medical Code(s): G37.3 - Acute transverse myelitis in demyelinating disease of central nervous system (3) CAD (coronary artery disease): Status: Acute Category: Medical Code(s): I25.10 - Atherosclerotic heart disease of [place] coronary artery without angina pectoris Plan 74yo M admitted with transverse myelitis vs Guillain-Hernandez?. Multiple hospitals will be contacted and he is currently on the wait list for [facility] and [facility]. Admitted for observation until definitive transfer for further therapy can be completed Transverse myelitis - 1 g Solu-Medrol in the ER - Needs neurologic consultation - Long wait list for acceptance at multiple facilities - will transfer for plasmaphoresis and IVIG Normocytic anemia - Monitor Type 2 diabetes Hyper glycemia - Insulin HTN - Hold therapy as of now can adjust following resolution of acute illness
[2024-11-28] MEDS: KETOROLAC 30MG/ML VIAL 15 MG IV (06:42)
[2024-11-28 07:24] LABS: Alanine Aminotransferase 18 U/L (12-78); Albumin Level 3.2 g/dl (3.5-5.0); Albumin/Globulin Ratio 1.1 (1.1-1.8); Alkaline Phosphatase 66 U/L (38-126); Anion Gap 8.8 mEq/L (5-15); Aspartate Amino Transferase 26 U/L (17-59); Bilirubin,Total 0.7 mg/dl (0.2-1.3); Blood Urea Nitrogen 27 mg/dl (9-20); Carbon Dioxide 26 mmol/L (22.0-30.0); Chloride 103 mmol/L (98-107); Creatinine Clearance Estimated 60 mL/min (50-200); Estimated Glomerular Filt Rate 94 ml/min (>60); GFR (African American) 114 ML/MIN (>60); Globulin 2.9 g/dL (1.3-3.2); Glucose 311 mg/dl (74-100); Potassium 3.8 mmoL/L (3.5-5.1); Sodium 134 mmol/L (136-145); Total Protein,Serum 6.1 g/dl (6.3-8.2)
--- NOTE | 2024-11-28 07:31 | PC.NURSE ---
called [facility] let them know of transfer to [facility] they asked if it could wait 30 minutes for transfer to due shift change about to happen kathy stated that would be fine
== END 2024-11-28 08:48 | disposition short-term general hospital (02) ==
LOC: ER 06:30 → 2ND 06:45
PROVIDERS: Student in an Organized Health Care Education/Training Program; Emergency Provider Emergency Medicine
DX: G37.3 Acute transverse myelitis in demyelinating disease of central nervous system (principal); I25.10 Atherosclerotic heart disease of native coronary artery without angina pectoris; R29.898 Other symptoms and signs involving the musculoskeletal system; R53.1 Weakness; I10 Essential (primary) hypertension; E11.65 Type 2 diabetes mellitus with hyperglycemia; Z11.4 Encounter for screening for human immunodeficiency virus [HIV]; Z11.59 Encounter for screening for other viral diseases; R79.89 Other specified abnormal findings of blood chemistry
CPT/HCPCS: 51702; 70450; 71275; 72125; 72128; 72131; 74177; 80053; 80074; 81001; 82533; 82550; 83735; 83880; 84100; 84436; 84443; 84484; 85025; 85378; 85651; 86140; 87040; 87389; 93005; 96361; 96365; 96375; 99291; J1885; J2270; J2919; J7050; J7120; Q9967